=== PATIENT | male | born 1930 | race Caucasian/White ===

== ENCOUNTER 2018-09-12 10:21 | Inpatient (IN) | payer MEDICARE, OTHER ==
--- NOTE | 2018-09-12 10:43 | EDM.PDOC ---
ED HPI GENERAL MEDICAL PROBLEM - General Chief Complaint: Fever Stated Complaint: COLD LIKE SYMPTOMS Time Seen by Provider: 09/12/18 10:32 Source of Information: Reports: Patient, Family, RN Notes Reviewed History Limitations: Reports: No Limitations - History of Present Illness INITIAL COMMENTS - FREE TEXT/NARRATIVE: Sunday onset gradual worsening with temp at home 37.5 & 38.1. mild worsening of rattles in chest, but not truly productive cough. Had considered increasing his O2 up to 3 L, but couldn't see the meter as it is low to the floor on his concentrator. Is up to date influenza as well as pneumonia. No recent exposures noted. Denies any chest pain or cardiac type symptoms. Edema is chronic stable with no decrease in urine function. 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 - Related Data Allergies Allergy/AdvReac Type Severity Reaction Status Date / Time No Known Drug Allergies Allergy Other Verified 04/28/18 12:02 Home Meds: Home Meds Acetaminophen [Extra Strength Non-Aspirin] 500 mg PO Q6H PRN 04/25/18 [History] Aspirin [Adult Low Dose Aspirin EC] 162 mg PO DAILY 04/25/18 [History] Beta-Carotene(A) w/C & E/Min [Prosight] 1 tab PO DAILY 04/25/18 [History] Enalapril Maleate [Vasotec] 10 mg PO TID 04/25/18 [History] Furosemide [Lasix] 20 mg PO DAILY 04/25/18 [History] Metoprolol Tartrate [Lopressor] 25 mg PO Q12HR 04/25/18 [History] Pioglitazone [Actos] 30 mg PO DAILY@1200 04/25/18 [History] Rosuvastatin [Crestor] 5 mg PO BEDTIME 04/25/18 [History] glipiZIDE [Glipizide ER] 5 mg PO BEDTIME 04/25/18 [History] glipiZIDE [Glipizide ER] 10 mg PO DAILY@1200 04/25/18 [History] metFORMIN [Glucophage] 1,000 mg PO BID 04/25/18 [History] Past Medical History HEENT History: Reports: Cataract, Hard of Hearing, Impaired Vision, Macular Degeneration Cardiovascular History: Reports: High Cholesterol, Hypertension, SOB on Exertion Respiratory History: Reports: None, SOB 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 Dermatologic History: Reports: None - Infectious Disease History Infectious Disease History: Reports: Chicken Pox - Past Surgical History HEENT Surgical History: Reports: Cataract Surgery, Tonsillectomy Cardiovascular Surgical History: Reports: None Respiratory Surgical History: Reports: None GI Surgical History: Reports: None Male Surgical History: Reports: Cystectomy, Other (See Below) Other Male Surgeries/Procedures: bladder lesion removed Endocrine Surgical History: Reports: None Neurological Surgical History: Reports: None Musculoskeletal Surgical History: Reports: None Dermatological Surgical History: Reports: None Social & Family History - Family History Family Medical History: Noncontributory HEENT: Reports: None Cardiac: Reports: None, Other (See Below) (Cistern unknown type of heart disease and hypertension) Respiratory: Reports: None GI: Reports: None : Reports: None OBGYN: Reports: None Musculoskeletal: Reports: None Neurological: Reports: None Psychiatric: Reports: None Endocrine/Metabolic: Reports: Diabetes, type II (Father diabetes) Hematologic: Reports: None Immunologic: Reports: None Dermatologic: Reports: None Oncologic: Reports: None - Tobacco Use Smoking Status *Q: Former Smoker Used Tobacco, but Quit: Yes Month/Year Tobacco Last Used: 1974 - Caffeine Use Caffeine Use: Reports: Coffee, Soda ED ROS GENERAL - Review of Systems Review Of Systems: See Below Constitutional: Reports: Fever, Chills, Malaise HEENT: Reports: No Symptoms, Glasses, Hearing Loss Respiratory: Reports: Shortness of Breath, Cough, Sputum Cardiovascular: Reports: No Symptoms, Dyspnea on Exertion. Denies: Chest Pain, Orthopnea Endocrine: Reports: No Symptoms GI/Abdominal: Reports: Constipation. Denies: Abdominal Pain : Reports: Frequency (diuretic) Musculoskeletal: Reports: No Symptoms Skin: Reports: No Symptoms Neurological: Reports: No Symptoms Psychiatric: Reports: No Symptoms Hematologic/Lymphatic: Reports: No Symptoms Immunologic: Reports: No Symptoms ED EXAM, GENERAL - Physical Exam Exam: See Below Exam Limited By: No Limitations General Appearance: Alert, WD/WN, No Apparent Distress Ears: Normal External Exam, Normal Canal (mild cerumen), Hearing Loss Nose: Normal Inspection, Normal Mucosa, No Blood Throat/Mouth: Normal Inspection, Normal Lips, Normal Teeth, Normal Gums, Normal Oropharynx, Normal Voice, No Airway Compromise Head: Atraumatic, Normocephalic Neck: Other (Limited due to stature) Respiratory/Chest: Chest Non-Tender, Decreased Breath Sounds, Crackles, Rhonchi Cardiovascular: Normal Peripheral Pulses, Regular Rate, Rhythm, No Gallop, No Rub. No: No Edema (edema +2) GI/Abdominal: Normal Bowel Sounds, Distended (rotound no pain.) (Male) Exam: Deferred Rectal (Males) Exam: Deferred Back Exam: Normal Inspection. No: CVA Tenderness (L), CVA Tenderness (R), Vertebral Tenderness Extremities: Normal Range of Motion. No: No Pedal Edema Neurological: Alert, Oriented, CN II-XII Intact, Normal Cognition Psychiatric: Normal Affect, Normal Mood Skin Exam: Dry, Intact, Normal Color, No Rash Course - Vital Signs Last Recorded V/S: Last Vital Signs Temp 36.7 C 09/12/18 10:39 Pulse 95 09/12/18 10:39 Resp 20 09/12/18 10:39 BP 162/95 H 09/12/18 10:39 Pulse Ox 92 L 09/12/18 10:43 - Orders/Labs/Meds Orders: Active Orders 24 hr Category Date Time Status RT Aerosol Therapy [RC] ASDIRECTED Care 09/12/18 11:21 Ordered Chest 2V [CR] Stat Exams 09/12/18 10:50 Ordered B-TYPE NATRIURETIC PEPTIDE,BNP [CHEM] Stat Lab 09/12/18 10:51 Ordered CBC WITH AUTO DIFF [HEME] Routine Lab 09/12/18 10:51 Ordered COMPREHENSIVE METABOLIC PN,CMP [CHEM] Stat Lab 09/12/18 10:51 Ordered CULTURE BLOOD [BC] Stat Lab 09/12/18 10:52 Ordered CULTURE BLOOD [BC] Stat Lab 09/12/18 11:24 Ordered LACTIC ACID [CHEM] Stat Lab 09/12/18 10:52 Ordered Meds: Medications Discontinued Medications Generic Name Dose Route Start Last Admin Trade Name Kaz PRN Reason Stop Dose Admin Albuterol/Ipratropium 3 ml 09/12/18 11:20 Duoneb 3.0-0.5 Mg/3 Ml NEB 09/12/18 11:21 ONETIME ONE - Radiology Interpretation Free Text/Narrative:: Comparison with 10 May 2018 shows cardiomegaly chronic/stable. Limited inspiration. Increased marking of lobular separation Rt lower margin seems more dense with cardiac margin. Noted with increased consolidate of retro cardiac space on lateral view. - Re-Assessments/Exams Free Text/Narrative Re-Assessment/Exam: 09/12/18 12:13 nebulizer "Loosened" but minimal output for sputum culture. Slow to obtain collection. May feel slightly better after neb Free Text/Narrative Re-Assessment/Exam: 09/12/18 12:18 Breath sounds diminished bases with slight improvement of congestion rattle, mild rhonchi noted. Free Text/Narrative Re-Assessment/Exam: 09/12/18 12:20 Discussed with Jorge King for admission to inpatient status for likely pneumonia, congestion with increased shortness of breath on activity, despite home O2 therapy. Departure - Departure Time of Disposition: 12:22 Disposition: Admitted As Inpatient 66 Condition: Fair Clinical Impression: Pneumonia, Cough, History of fever, Edema, Diabetes, Weakness generalized - Discharge Information *PRESCRIPTION DRUG MONITORING PROGRAM REVIEWED*: Not Applicable *COPY OF PRESCRIPTION DRUG MONITORING REPORT IN PATIENT NEGRITO: Not Applicable Additional Instructions: Discussed with [place] Provider Jorge King for admission. - Problem List & Annotations (1) Cough SNOMED Code(s): 90496446 Code(s): R05 - COUGH Status: Acute Priority: Medium Current Visit: Yes (2) History of fever SNOMED Code(s): 248837482 Code(s): Z87.898 - PERSONAL HISTORY OF OTHER SPECIFIED CONDITIONS Status: Acute Priority: High Current Visit: Yes (3) Edema SNOMED Code(s): 292969080, 593483047 Code(s): R60.9 - EDEMA, UNSPECIFIED Status: Chronic Priority: Medium Current Visit: Yes Qualifiers: Edema type: localized Qualified Code(s): R60.0 - Localized edema (4) Diabetes SNOMED Code(s): 36962741 Code(s): E11.9 - TYPE 2 DIABETES MELLITUS WITHOUT COMPLICATIONS Status: Acute Priority: High Current Visit: Yes Qualifiers: Diabetes mellitus type: type 2 (5) Macular degeneration SNOMED Code(s): 782538006 Code(s): H35.30 - UNSPECIFIED MACULAR DEGENERATION Status: Chronic Priority: Medium Current Visit: Yes (6) Hard of hearing SNOMED Code(s): 27264804 Code(s): H91.90 - UNSPECIFIED HEARING LOSS, UNSPECIFIED EAR Status: Chronic Priority: Medium Current Visit: Yes Qualifiers: Laterality: bilateral (7) Shortness of breath SNOMED Code(s): 413684224 Code(s): R06.02 - SHORTNESS OF BREATH Status: Acute Priority: High Current Visit: Yes - Problem List Review Problem List Initiated/Reviewed/Updated: Yes - My Orders Last 24 Hours: My Active Orders 09/12/18 10:50 Chest 2V [CR] Stat 09/12/18 10:51 B-TYPE NATRIURETIC PEPTIDE,BNP [CHEM] Stat CBC WITH AUTO DIFF [HEME] Routine COMPREHENSIVE METABOLIC PN,CMP [CHEM] Stat 09/12/18 10:52 CULTURE BLOOD [BC] Stat LACTIC ACID [CHEM] Stat 09/12/18 11:21 RT Aerosol Therapy [RC] ASDIRECTED 09/12/18 11:24 CULTURE BLOOD [BC] Stat - Assessment/Plan Last 24 Hours: My Active Orders 09/12/18 10:50 Chest 2V [CR] Stat 09/12/18 10:51 B-TYPE NATRIURETIC PEPTIDE,BNP [CHEM] Stat CBC WITH AUTO DIFF [HEME] Routine COMPREHENSIVE METABOLIC PN,CMP [CHEM] Stat 09/12/18 10:52 CULTURE BLOOD [BC] Stat LACTIC ACID [CHEM] Stat 09/12/18 11:21 RT Aerosol Therapy [RC] ASDIRECTED 09/12/18 11:24 CULTURE BLOOD [BC] Stat Plan: Admission to hospital.
[2018-09-12] MEDS ORDERED: Albuterol/Ipratropium 3.0-0.5 MG/3 ML Neb Soln NEB ONE ×2 (11:01→11:20)
--- NOTE | 2018-09-12 11:30 | CR ---
[id number] RAD/RAD Chest PA And Lateral EXAM: RAD Chest PA And Lateral INDICATION: COUGH, SHORTNESS OF BREATH, FEVER. COMPARISON: May 10, 2018. DISCUSSION: Stable enlargement of the cardiac mediastinal silhouette with mild central vascular congestion. Changes of COPD with bibasal scarring, similar to the prior examination. IMPRESSION: No acute findings or significant change from the prior examination Lowell Jackson MD 09/12/18 1128 Thank you for allowing us to participate in the care of your patient.
[2018-09-12 11:52] LABS: ANION GAP 10.3 mmol/L (5-15); CHLORIDE,CL 104 mmol/L (98-115); SODIUM,NA 144 mmol/L (136-145)
[2018-09-12] MEDS ORDERED: cefTRIAXone 1 GM Vial ONE (12:12)
[2018-09-12] MEDS ORDERED: cefTRIAXone 1 GM Vial IVPUSH SCH ×2 (12:15→12:35)
[2018-09-12] MEDS ORDERED: Azithromycin 500 MG in Sodium Chloride 0.9% 250 ML IV SCH (13:00)
[2018-09-12] MEDS ORDERED: Sodium Chloride 0.9% 250 ML IV SCH (14:00)
[2018-09-12] MEDS ORDERED: Acetaminophen 500 MG Tab PO PRN (17:08)
[2018-09-12] MEDS: Rosuvastatin 5 MG Tab PO SCH (20:33)
[2018-09-12] MEDS: Metoprolol Tartrate 25 MG Tab PO SCH (20:34)
[2018-09-12] MEDS: Enalapril 5 MG Tab PO SCH (20:39)
[2018-09-13 09:37] LABS: ANION GAP 6.3 mmol/L (5-15); CHLORIDE,CL 100 mmol/L (98-115); SODIUM,NA 137 mmol/L (136-145)
[2018-09-13] MEDS: Aspirin 81 MG Tab.EC PO SCH (09:43)
[2018-09-13] MEDS: Enalapril 5 MG Tab PO SCH ×3 (09:44→21:15)
[2018-09-13] MEDS: Metoprolol Tartrate 25 MG Tab PO SCH ×2 (09:44→21:15)
--- NOTE | 2018-09-13 11:25 | PCM.HP ---
H&P History of Present Illness - General Date of Service: 09/13/18 Admit Problem/Dx: Admission Diagnosis/Problem Admission Diagnosis/Problem Shortness of breath Source of Information: Patient, Old Records History Limitations: Reports: No Limitations - History of Present Illness Initial Comments - Free Text/Narative: This is an 88 year old male who presented to the ED yesterday with concerns of shortness of breath and worsening cough. The symptoms started on 09/10/18 and have been progressively worsening. He reports that he felt feverish at home and has had a harsh productive cough. He has COPD and wears oxygen at home at 2 liters and considered increasing this to 3 liters, but never did. Denies sinus congestion or ear pain. Notes a mild sore throat. He had work up done in the ED and was subsequently admitted for further monitoring and treatment of his condition. He lives at home alone. PMH HTN, HLD, T2DM, Obesity. - Related Data Allergies/Adverse Reactions: Allergies Allergy/AdvReac Type Severity Reaction Status Date / Time No Known Drug Allergies Allergy Other Verified 09/12/18 14:49 Home Medications: Home Meds Acetaminophen [Extra Strength Non-Aspirin] 1,000 mg PO Q6H PRN 04/25/18 [History ] Aspirin [Adult Low Dose Aspirin EC] 162 mg PO DAILY 04/25/18 [History] Beta-Carotene(A) w/C & E/Min [Prosight] 1 tab PO DAILY 04/25/18 [History] Enalapril Maleate [Vasotec] 10 mg PO TID 04/25/18 [History] Furosemide [Lasix] 20 mg PO DAILY 04/25/18 [History] Metoprolol Tartrate [Lopressor] 25 mg PO Q12HR 04/25/18 [History] Pioglitazone [Actos] 30 mg PO DAILY@1200 04/25/18 [History] Rosuvastatin [Crestor] 5 mg PO BEDTIME 04/25/18 [History] glipiZIDE [Glipizide ER] 5 mg PO BEDTIME 04/25/18 [History] glipiZIDE [Glipizide ER] 10 mg PO DAILY@1200 04/25/18 [History] metFORMIN [Glucophage] 1,000 mg PO BID 04/25/18 [History] Past Medical History HEENT History: Reports: Cataract, Hard of Hearing, Impaired Vision, Macular Degeneration Cardiovascular History: Reports: High Cholesterol, Hypertension, SOB on Exertion Respiratory History: Reports: None, SOB Other Respiratory History: Home oxygen at 2 liters continuous. 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 Dermatologic History: Reports: None - Infectious Disease History Infectious Disease History: Reports: Chicken Pox - Past Surgical History Head Surgeries/Procedures: Reports: None HEENT Surgical History: Reports: Cataract Surgery, Tonsillectomy Cardiovascular Surgical History: Reports: None Respiratory Surgical History: Reports: None GI Surgical History: Reports: None Male Surgical History: Reports: Cystectomy, Other (See Below) Other Male Surgeries/Procedures: bladder lesion removed Endocrine Surgical History: Reports: None Neurological Surgical History: Reports: None Musculoskeletal Surgical History: Reports: None Oncologic Surgical History: Reports: None Dermatological Surgical History: Reports: None Social & Family History - Family History HEENT: Reports: None Cardiac: Reports: None, Other (See Below) Respiratory: Reports: None Other Respiratory Family Hisory: sister from pneumonia GI: Reports: None : Reports: None OBGYN: Reports: None Musculoskeletal: Reports: None Neurological: Reports: None Psychiatric: Reports: None Endocrine/Metabolic: Reports: Diabetes, type II Hematologic: Reports: None Immunologic: Reports: None Dermatologic: Reports: None Oncologic: Reports: None - Tobacco Use Smoking Status *Q: Former Smoker Years of Tobacco use: 25 Packs/Tins Daily: 1 Used Tobacco, but Quit: Yes Month/Year Tobacco Last Used: 1974 Second Hand Smoke Exposure: No - Caffeine Use Caffeine Use: Reports: Coffee, Soda - Recreational Drug Use Recreational Drug Use: No H&P Review of Systems - Review of Systems: Review Of Systems: See Below General: Reports: Fever, Chills, Malaise, Weakness, Fatigue, Decreased Appetite HEENT: Reports: Sore Throat. Denies: Ear Pain, Headaches, Sinus Congestion Pulmonary: Reports: Shortness of Breath, Wheezing, Cough, Sputum Cardiovascular: Reports: Dyspnea on Exertion, Edema. Denies: Chest Pain Gastrointestinal: Reports: Decreased Appetite. Denies: Abdominal Pain, Constipation, Diarrhea, Nausea, Vomiting Genitourinary: Reports: No Symptoms Psychiatric: Reports: No Symptoms Neurological: Denies: Dizziness, Headache Exam - Exam Exam: See Below - Vital Signs Vital Signs: Last Vital Signs Temp 97.4 F 09/13/18 07:00 Pulse 92 09/13/18 09:44 Resp 12 09/13/18 07:00 BP 149/80 H 09/13/18 09:44 Pulse Ox 95 09/13/18 08:11 Weight: 248 lb - Exam Quality Assessment: Supplemental Oxygen (2 liters per nasal cannula-95%), DVT Prophylaxis (score of 5-start lovenox 40 mg daily) General: Alert, Oriented, Cooperative, Other (No distress) HEENT: Conjunctiva Clear, Mucosa Moist & [place], Posterior Pharynx Clear, TMs Clear, Glasses. No: Hearing Intact ([place]) Neck: Supple, Trachea Midline Lungs: Normal Respiratory Effort, Decreased Breath Sounds (throughout lung foy), Crackles (RLL) Cardiovascular: Regular Rate, Regular Rhythm, Normal S1, Normal S2 GI/Abdominal Exam: Normal Bowel Sounds, Soft, Non-Tender, No Distention (Large, round) Extremities: Other (trace-1+ edema to BLE) Skin: Warm, Dry Neurological: Normal Speech Neuro Extensive - Mental Status: Alert, Oriented x3, Normal Mood/Affect, Normal Cognition, Memory Intact Psychiatric: Alert, Normal Affect, Normal Mood - Patient Data Lab Results Last 24 hrs: Laboratory Results - last 24 hr 09/12/18 09/12/18 09/12/18 Range/Units 11:20 11:20 11:20 WBC 3.34 L (5.00-10.00) 10^3/uL RBC 4.60 (4.50-6.00) 10^6/uL Hgb 13.8 (13.0-17.0) g/dL Hct 43.5 (40.0-52.0) % MCV 94.6 H D (82.0-92.0) fL MCH 30.0 (27.0-31.0) pg MCHC 31.7 L (32.0-36.0) g/dL RDW 13.9 (11.5-14.5) % Plt Count 114 L D (150-400) 10^3/uL MPV 8.8 (7.4-10.4) fL Immature Gran % (Auto) 0.3 (0.0-5.0) % Neut % (Auto) 68.5 (50.0-70.0) % Lymph % (Auto) 16.2 L (20.0-40.0) % [place] % (Auto) 12.9 H (2.0-8.0) % Eos % (Auto) 1.8 (1.0-3.0) % Baso % (Auto) 0.3 (0.0-1.0) % Immature Gran # (Auto) 0.01 (0.00-0.50) 10^3/uL Neut # (Auto) 2.29 L (2.50-7.00) 10^3/uL Lymph # (Auto) 0.54 L (1.00-4.00) 10^3/uL [place] # (Auto) 0.43 (0.10-0.80) 10^3/uL Eos # (Auto) 0.06 L (0.10-0.30) 10^3/uL Baso # (Auto) 0.01 (0.00-0.10) 10^3/uL Sodium 144 (136-145) mmol/L Potassium 4.0 (3.3-5.3) mmol/L Chloride 104 (98-115) mmol/L Carbon Dioxide 33.7 H (21.0-32.0) mmol/L Anion Gap 10.3 (5-15) mmol/L BUN 26 H (6-25) mg/dL Creatinine 0.77 (0.51-1.17) mg/dL Est Cr Clr Drug Dosing TNP Estimated GFR (MDRD) > 60 mL/min Glucose 160 H (75 - 99) mg/dL POC Glucose (74-106) mg/dl Lactic Acid 1.2 (0.4-2.0) mmol/L Calcium 8.3 L (8.7-10.3) mg/dL Total Bilirubin 0.5 (0.2-1.0) mg/dL AST 18 (15-37) U/L ALT 9 L (12-78) U/L Alkaline Phosphatase 67 (46-116) IU/L Troponin I (0.00-0.070) ng/mL B-Natriuretic Peptide 319 H (0-100) pg/mL Total Protein 6.6 (6.4-8.2) g/dL Albumin 3.08 (3.00-4.80) g/dL 09/13/18 09/13/18 09/13/18 Range/Units 08:08 09:05 09:05 WBC 4.26 L (5.00-10.00) 10^3/uL RBC 4.37 L (4.50-6.00) 10^6/uL Hgb 13.2 (13.0-17.0) g/dL Hct 41.0 (40.0-52.0) % MCV 93.8 H (82.0-92.0) fL MCH 30.2 (27.0-31.0) pg MCHC 32.2 (32.0-36.0) g/dL RDW 13.7 (11.5-14.5) % Plt Count 123 L (150-400) 10^3/uL MPV 9.2 (7.4-10.4) fL Immature Gran % (Auto) 0.0 (0.0-5.0) % Neut % (Auto) 73.8 H (50.0-70.0) % Lymph % (Auto) 14.3 L (20.0-40.0) % [place] % (Auto) 9.6 H (2.0-8.0) % Eos % (Auto) 2.1 (1.0-3.0) % Baso % (Auto) 0.2 (0.0-1.0) % Immature Gran # (Auto) 0.00 (0.00-0.50) 10^3/uL Neut # (Auto) 3.14 (2.50-7.00) 10^3/uL Lymph # (Auto) 0.61 L (1.00-4.00) 10^3/uL [place]kins # (Auto) 0.41 (0.10-0.80) 10^3/uL Eos # (Auto) 0.09 L (0.10-0.30) 10^3/uL Baso # (Auto) 0.01 (0.00-0.10) 10^3/uL Sodium 137 (136-145) mmol/L Potassium 3.7 (3.3-5.3) mmol/L Chloride 100 (98-115) mmol/L Carbon Dioxide 34.4 H (21.0-32.0) mmol/L Anion Gap 6.3 (5-15) mmol/L BUN 23 (6-25) mg/dL Creatinine 0.68 (0.51-1.17) mg/dL Est Cr Clr Drug Dosing 70.20 Estimated GFR (MDRD) > 60 mL/min Glucose 184 H (75 - 99) mg/dL POC Glucose 104 (74-106) mg/dl Lactic Acid (0.4-2.0) mmol/L Calcium 8.2 L (8.7-10.3) mg/dL Total Bilirubin (0.2-1.0) mg/dL AST (15-37) U/L ALT (12-78) U/L Alkaline Phosphatase (46-116) IU/L Troponin I (0.00-0.070) ng/mL B-Natriuretic Peptide (0-100) pg/mL Total Protein (6.4-8.2) g/dL Albumin (3.00-4.80) g/dL 09/13/18 Range/Units 09:05 WBC (5.00-10.00) 10^3/uL RBC (4.50-6.00) 10^6/uL Hgb (13.0-17.0) g/dL Hct (40.0-52.0) % MCV (82.0-92.0) fL MCH (27.0-31.0) pg MCHC (32.0-36.0) g/dL RDW (11.5-14.5) % Plt Count (150-400) 10^3/uL MPV (7.4-10.4) fL Immature Gran % (Auto) (0.0-5.0) % Neut % (Auto) (50.0-70.0) % Lymph % (Auto) (20.0-40.0) % [place] % (Auto) (2.0-8.0) % Eos % (Auto) (1.0-3.0) % Baso % (Auto) (0.0-1.0) % Immature Gran # (Auto) (0.00-0.50) 10^3/uL Neut # (Auto) (2.50-7.00) 10^3/uL Lymph # (Auto) (1.00-4.00) 10^3/uL [place] # (Auto) (0.10-0.80) 10^3/uL Eos # (Auto) (0.10-0.30) 10^3/uL Baso # (Auto) (0.00-0.10) 10^3/uL Sodium (136-145) mmol/L Potassium (3.3-5.3) mmol/L Chloride (98-115) mmol/L Carbon Dioxide (21.0-32.0) mmol/L Anion Gap (5-15) mmol/L BUN (6-25) mg/dL Creatinine (0.51-1.17) mg/dL Est Cr Clr Drug Dosing Estimated GFR (MDRD) mL/min Glucose (75 - 99) mg/dL POC Glucose (74-106) mg/dl Lactic Acid (0.4-2.0) mmol/L Calcium (8.7-10.3) mg/dL Total Bilirubin (0.2-1.0) mg/dL AST (15-37) U/L ALT (12-78) U/L Alkaline Phosphatase (46-116) IU/L Troponin I < 0.04 (0.00-0.070) ng/mL B-Natriuretic Peptide (0-100) pg/mL Total Protein (6.4-8.2) g/dL Albumin (3.00-4.80) g/dL Result Diagrams: 09/13/18 09:05 09/13/18 09:05 Problem List Initiated/Reviewed/Updated: Yes Orders Last 24hrs: Active Orders 24 hr Category Date Time Status Patient Status [ADT] Routine ADT 09/12/18 12:37 Ordered Accu Check [Blood Glucose Check, Bedside] [RC] TIDAC Care 09/13/18 11:18 Ordered Blood Glucose Check, Bedside [RC] 0700 Care 09/13/18 00:00 Active Oxygen Therapy [RC] ASDIRECTED Care 09/13/18 08:09 Active RT Aerosol Therapy [RC] .PRN Care 09/13/18 10:40 Active RT Incentive Spirometry [RC] Q2HWA Care 09/13/18 08:10 Active Vital Signs [RC] 0300,0700,1100,1500,1900,2300 Care 09/12/18 23:26 Active [employer] Diet [DIET] Diet 09/13/18 Breakfast Active BMP [BASIC METABOLIC PANEL,BMP] [CHEM] AM Lab 09/14/18 05:11 Ordered CBC WITH AUTO DIFF [HEME] AM Lab 09/14/18 05:11 Ordered CULTURE BLOOD [BC] Stat Lab 09/12/18 11:20 Received CULTURE BLOOD [BC] Stat Lab 09/12/18 11:50 Received INFLUENZA A+B AG SCREEN [RM] Urgent Lab 09/13/18 10:41 Ordered RESPIRATORY CULT [MREF] Stat Lab 09/12/18 12:15 Received Acetaminophen [Tylenol Extra Strength] Med 09/12/18 17:08 Active 1,000 mg PO Q6H PRN Albuterol/Ipratropium [DuoNeb 3.0-0.5 MG/3 ML] Med 09/13/18 11:00 Active 3 ml NEB Q6HRRT Aspirin [Halfprin] Med 09/13/18 09:00 Active 162 mg PO DAILY Enalapril [Vasotec] Med 09/12/18 21:00 Active 10 mg PO TID Metoprolol Tartrate [Lopressor] Med 09/12/18 21:00 Active 25 mg PO BID Rosuvastatin [Crestor] Med 09/12/18 21:00 Active 5 mg PO BEDTIME Sodium Chloride 0.9% [Normal Saline] 250 ml Med 09/12/18 14:00 Active IV ASDIRECTED metFORMIN [Glucophage] Med 09/13/18 21:00 Ordered 1,000 mg PO BID Resuscitation Status Routine Resus Stat 09/12/18 23:26 Ordered Medication Orders Acetaminophen (Tylenol Extra Strength) 1,000 mg PO Q6H PRN PRN Reason: pain, moderate Albuterol/Ipratropium (Duoneb 3.0-0.5 Mg/3 Ml) 3 ml NEB Q6HRRT LISA Aspirin (Halfprin) 162 mg PO DAILY LISA Last Admin: 09/13/18 09:43 Dose: 162 mg Enalapril Maleate (Vasotec) 10 mg PO TID LISA Last Admin: 09/13/18 09:44 Dose: 10 mg Admin: 09/12/18 20:39 Dose: 10 mg Sodium Chloride (Normal Saline) 250 mls @ 100 mls/hr IV ASDIRECTED [facility] Last Admin: 09/12/18 14:05 Dose: 100 mls/hr Metformin HCl (Glucophage) 1,000 mg PO BID [facility] Metoprolol Tartrate (Lopressor) 25 mg PO BID [facility] Last Admin: 09/13/18 09:44 Dose: 25 mg Admin: 09/12/18 20:34 Dose: 25 mg Rosuvastatin Calcium (Crestor) 5 mg PO BEDTIME [facility] Last Admin: 09/12/18 20:33 Dose: 5 mg Assessment/Plan Comment:: HPI: This is an 88 year old male who presented to the ED yesterday with concerns of shortness of breath and worsening cough. The symptoms started on 09/10 and have been progressively worsening. He reports that he felt feverish at home and has had a harsh productive cough. He has COPD and wears oxygen at home at 2 liters and considered increasing this to 3 liters, but never did. Denies sinus congestion or ear pain. Notes a mild sore throat. He had work up done in the ED and was subsequently admitted for further monitoring and treatment of his condition. He lives at home alone. PMH HTN, HLD, T2DM, Obesity. Pertinent ED workup: WBC 3.34 with no neutrophilia Hgb 13.8 BNP 319 Lactic acid 1.2 CXR-no acute processes Blood cultures x 2 pending Sputum culture pending One time doses of rocephin and azithromycin IV given Further work-up upon arrival to the floor: Medication reconciliation Troponin and influenza added Accucheckjune Ruiz Primary assessment/plan: Dyspnea, question early viral pneumonia versus COPD exacerbation versus CHF exacerbation versus influenza. WBC 4.26 with mild neutrophilia. Hgb 13.2. Troponin <0.04. Hold off on antibiotics at this time given low WBC. No signs of overt fluid overload on exam today. CXR negative. Will add DuoNebs. No wheezing so will hold off on steroids. Rule out influenza. Influenza swab pending. CHF exacerbation diastolic, mild. BNP 319. ECHO (2017) showed EF 60%, grade 2 diastolic dysfunction, normal systolic function, mild LVH. Will give one time IV lasix 20 mg dose today. Daily weights. Accurate I & O. Secondary assessment/plan: Dependence on supplemental oxygen. 2 liters is baseline. HTN. Continue enalapril and lopressor. Mixed hyperlipidemia. Continue crestor. LDL 64 (01/2018). T2DM. Accuchecks TID. Restart metformin. Holding actos and glipizide. Last A1c 6.5 (2017). Glucose 104 this AM. Obesity. Osteoarthritis. Continue tylenol PRN. Thoracic degenerative disc disease. Macular degeneration. [place]. DVT prophylaxis. Score 5. Lovenox 40 mg daily started. Overall plan: Continue work-up to find true source of dyspnea. Will treat based on results. May be able to be discharged tomorrow since he is back to his baseline respiratory status. Repeat labs in AM.
[2018-09-13] MEDS ORDERED: Furosemide 40 MG/4 ML VIAL IVPUSH ONE (11:36)
[2018-09-13] MEDS: Enoxaparin 40 MG/0.4 ML Syringe SUBCUT SCH (12:27)
[2018-09-13] MEDS: Albuterol/Ipratropium 3.0-0.5 MG/3 ML Neb Soln NEB SCH ×3 (13:24→22:48)
[2018-09-13] MEDS: metFORMIN 500 MG Tab PO SCH (21:14)
[2018-09-13] MEDS: Rosuvastatin 5 MG Tab PO SCH (21:15)
[2018-09-14] MEDS: Albuterol/Ipratropium 3.0-0.5 MG/3 ML Neb Soln NEB SCH ×3 (05:05→16:38)
[2018-09-14 07:56] LABS: ANION GAP 14.4 mmol/L (5-15); CHLORIDE,CL 98 mmol/L (98-115); SODIUM,NA 142 mmol/L (136-145)
[2018-09-14] MEDS: Aspirin 81 MG Tab.EC PO SCH (09:45)
[2018-09-14] MEDS: Metoprolol Tartrate 25 MG Tab PO SCH (09:45)
[2018-09-14] MEDS: metFORMIN 500 MG Tab PO SCH (09:46)
[2018-09-14] MEDS: Enalapril 5 MG Tab PO SCH ×2 (09:46→14:15)
[2018-09-14] MEDS: Enoxaparin 40 MG/0.4 ML Syringe SUBCUT SCH (12:23)
[2018-09-14] MEDS ORDERED: Albuterol/Ipratropium 3.0-0.5 MG/3 ML Neb Soln ONE (16:32)
--- NOTE | 2018-09-16 09:46 | DISCH ---
DISCHARGE DIAGNOSIS: Chronic obstructive pulmonary disease with mild central vascular congestion. BRIEF HISTORY: An 88-year-old male patient who was admitted through the ED due to concerns of shortness of breath and cough. His symptoms actually began on 09/10/2018 and progressively worsened. He had been at home. He reported being feverish with a harsh productive cough. He does utilize home oxygen at 2 L per nasal cannula. He did not have any sinus congestion, ear ache, or ear congestion. He did complain of a mild sore throat. He was admitted for further monitoring and treatment. He does live at home alone in [place], [place]. He reports that he is planning to move to [place] in the near future. HOSPITAL SUMMARY: This patient was initially seen through the ED. He was given one IV dose of azithromycin and given Rocephin in addition. He received lab work. His white count initially was 3.34 with a followup of 4.26, therefore, the antibiotic was discontinued. He did receive nebulizing treatments and Lasix therapy. Blood cultures were obtained after one day and those are negative for growth. Sputum culture is pending. An influenza screen was obtained and is negative. He has had no complications throughout the course of his hospitalization. MEDICATIONS: His medications on discharge will be his home medications which will include: 1. Prosight daily. 2. Tylenol 1000 mg every 6 hours as needed. 3. Lopressor 25 q.12 hours. 4. Vasotec 10 mg t.i.d. 5. Aspirin low-dose 162 mg daily. 6. Metformin 1000 mg b.i.d. 7. Glipizide 5 mg at bedtime and 10 mg at noon. 8. Lasix 20 daily. 9. Crestor 5 mg daily. He previously was on Actos, however, his last A1c was 6.5, therefore that is going to be held until his followup is obtained next week. PHYSICAL EXAMINATION: VITAL SIGNS: Stable. HEENT: Negative. RESPIRATORY: Lung sounds are clear to auscultation in the upper bases. He does have some fine crackles in the lower bases. CARDIOVASCULAR: Heart rate and rhythm is regular. S1, S2. ABDOMEN: Rounded, large. Bowel sounds are present. EXTREMITIES: Noted a trace of lower extremity edema. MENTAL STATUS: He is alert and he is oriented. His mood and affect are normal. IMPRESSION AND PLAN: His primary assessment is chronic obstructive pulmonary disease with mild central vascular congestion. Initially, it was felt there could possibly be pneumonia; however, with his white count being normal, that was ruled out. His chest x-ray was essentially negative. Influenza was negative. Congestive heart failure exacerbation, he did have a BNP of 319. He had an echo completed in 2018 with an ejection fraction of 60%. He had a grade 2 diastolic dysfunction with a normal systolic dysfunction. His secondary assessment and plan, oxygen supplementation dependence, 2 L per nasal cannula. He has hypertension. He will continue with his Lopressor and enalapril. Hypercholesterolemia will be treated with his Crestor. He does have type 2 diabetes. He is to complete home Accu-Cheks on a b.i.d. to t.i.d. basis. He will continue his metformin and his glipizide at home. Actos will be held. His last A1c was 6.5. He is to monitor his home blood sugars and follow up next week with his primary care provider for reevaluation of his diabetes, obesity, osteoarthritis. He will continue with his Tylenol as needed. He does have macular degeneration. The patient did receive a discharge packet with diabetic patient education material. /[id number]
== END 2018-09-14 17:00 | disposition home or self-care (01) | DRG 190 ==
LOC: KA.ED 10:21 → KA.MS 12:37
PROVIDERS: ADMIT Nurse Practitioner; ATTEND Family Medicine
DX: J44.9 Chronic obstructive pulmonary disease, unspecified (principal); I50.33 Acute on chronic diastolic (congestive) heart failure; I11.0 Hypertensive heart disease with heart failure; E78.00 Pure hypercholesterolemia, unspecified; E11.9 Type 2 diabetes mellitus without complications; E66.9 Obesity, unspecified; M19.91 Primary osteoarthritis, unspecified site; H35.30 Unspecified macular degeneration; H91.90 Unspecified hearing loss, unspecified ear; H54.7 Unspecified visual loss; K59.09 Other constipation; E78.2 Mixed hyperlipidemia; M51.34 Other intervertebral disc degeneration, thoracic region; Z79.82 Long term (current) use of aspirin; Z79.84 Long term (current) use of oral hypoglycemic drugs; Z98.49 Cataract extraction status, unspecified eye; Z99.81 Dependence on supplemental oxygen; Z85.89 Personal history of malignant neoplasm of other organs and systems; Z87.891 Personal history of nicotine dependence
CPT/HCPCS: 36415; 71046; 80048; 80053; 82962; 83605; 83880; 84484; 85025; 87040; 87070; 87205; 87804; 94640; 99284; 99285-25; A9270-GY; J0456; J0696; J1650; J1940; J7050; J7620-GY

== ENCOUNTER 2018-11-12 13:55 | Inpatient (IN) | payer MEDICARE, OTHER ==
--- NOTE | 2018-11-12 14:22 | EDM.PDOC ---
ED HPI GENERAL MEDICAL PROBLEM - General Chief Complaint: General Stated Complaint: Weakness Time Seen by Provider: 11/12/18 14:06 Source of Information: Reports: Patient, Provider History Limitations: Reports: No Limitations - History of Present Illness INITIAL COMMENTS - FREE TEXT/NARRATIVE: Patient is a 88-year-old gentleman who presents to the emergency department with a complaint of generalized weakness. Patient states that this gradually getting worse and is having a hard time walking. Patient was brought here by his nephew. I discussed case with Karime Alexandra from [facility] who is well known to her. Patient was found to have oxygen saturation of 88% on presentation, however patient does use oxygen at home. Patient denies recent fall, syncopal episode, chest pain, headache, shortness of breath, blurry vision , nausea, vomiting, diarrhea, abdominal pain. Onset: Gradual Duration: Getting Worse Location: Reports: Generalized Severity: Mild Improves with: Reports: None Worsens with: Reports: None Associated Symptoms: Reports: Shortness of Breath, Weakness - Related Data Allergies Allergy/AdvReac Type Severity Reaction Status Date / Time No Known Drug Allergies Allergy Other Verified 11/12/18 14:12 Home Meds: Home Meds Aspirin [Adult Low Dose Aspirin EC] 162 mg PO DAILY 04/25/18 [History] Beta-Carotene(A) w/C & E/Min [Prosight] 1 tab PO DAILY 04/25/18 [History] Enalapril Maleate [Vasotec] 10 mg PO TID 04/25/18 [History] Furosemide [Lasix] 20 mg PO DAILY 04/25/18 [History] Metoprolol Tartrate [Lopressor] 25 mg PO Q12HR 04/25/18 [History] Rosuvastatin [Crestor] 5 mg PO BEDTIME 04/25/18 [History] glipiZIDE [Glipizide ER] 5 mg PO BEDTIME 04/25/18 [History] glipiZIDE [Glipizide ER] 10 mg PO DAILY@1200 04/25/18 [History] metFORMIN [Glucophage] 1,000 mg PO BID 04/25/18 [History] Acetaminophen [Tylenol Extra Strength] 1,000 mg PO Q6H PRN tablet 09/14/18 [Rx] Albuterol/Ipratropium [DuoNeb 3.0-0.5 MG/3 ML] 3 ml NEB TID 11/12/18 [History] Past Medical History HEENT History: Reports: Cataract, Hard of Hearing, Impaired Vision, Macular Degeneration Cardiovascular History: Reports: High Cholesterol, Hypertension, SOB on Exertion Respiratory History: Reports: None, SOB Other Respiratory History: Home oxygen at 2 liters continuous. 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 Dermatologic History: Reports: None - Infectious Disease History Infectious Disease History: Reports: Chicken Pox - Past Surgical History Head Surgeries/Procedures: Reports: None HEENT Surgical History: Reports: Cataract Surgery, Tonsillectomy Cardiovascular Surgical History: Reports: None Respiratory Surgical History: Reports: None GI Surgical History: Reports: None Male Surgical History: Reports: Cystectomy, Other (See Below) Other Male Surgeries/Procedures: bladder lesion removed Endocrine Surgical History: Reports: None Neurological Surgical History: Reports: None Musculoskeletal Surgical History: Reports: None Oncologic Surgical History: Reports: None Dermatological Surgical History: Reports: None Social & Family History - Family History Family Medical History: Noncontributory HEENT: Reports: None Cardiac: Reports: None, Other (See Below) Respiratory: Reports: None Other Respiratory Family Hisory: sister from pneumonia GI: Reports: None : Reports: None OBGYN: Reports: None Musculoskeletal: Reports: None Neurological: Reports: None Psychiatric: Reports: None Endocrine/Metabolic: Reports: Diabetes, type II Hematologic: Reports: None Immunologic: Reports: None Dermatologic: Reports: None Oncologic: Reports: None - Caffeine Use Caffeine Use: Reports: Coffee, Soda ED ROS GENERAL - Review of Systems Review Of Systems: ROS reveals no pertinent complaints other than HPI. Constitutional: Reports: Weakness, Fatigue HEENT: Reports: No Symptoms Respiratory: Reports: Shortness of Breath Cardiovascular: Reports: No Symptoms Endocrine: Reports: No Symptoms GI/Abdominal: Reports: No Symptoms : Reports: No Symptoms Musculoskeletal: Reports: No Symptoms Skin: Reports: No Symptoms Neurological: Reports: No Symptoms Psychiatric: Reports: No Symptoms Hematologic/Lymphatic: Reports: No Symptoms Immunologic: Reports: No Symptoms ED EXAM, GENERAL - Physical Exam Exam: See Below Exam Limited By: No Limitations General Appearance: Alert, WD/WN, No Apparent Distress Eye Exam: Bilateral Eye: Normal Inspection Nose: Normal Inspection, Normal Mucosa, No Blood Throat/Mouth: Normal Inspection, Normal Oropharynx, No Airway Compromise Head: Atraumatic, Normocephalic Neck: Normal Inspection, Supple, Non-Tender Respiratory/Chest: No Respiratory Distress, Lungs Clear, Normal Breath Sounds, No Accessory Muscle Use, Chest Non-Tender Cardiovascular: Regular Rate, Rhythm, No Murmur GI/Abdominal: Normal Bowel Sounds, Soft, Non-Tender, No Organomegaly, No Distention, No Abnormal Bruit, No Mass Back Exam: Normal Inspection. No: CVA Tenderness (L), CVA Tenderness (R) Extremities: No Pedal Edema, Other (Bilateral lower extremities with numerous excoriations and stasis color changes) Neurological: Alert, Oriented, Normal Cognition Psychiatric: Normal Affect, Normal Mood Skin Exam: Warm, Dry, Intact, No Rash EKG INTERPRETATION EKG Date: 11/12/18 Time: 14:15 Rhythm: Other (Sinus rhythm with first-degree AV block) Rate (Beats/Min): 97 [place]: Normal QRS: Normal ST-T: Normal QT: Normal Course - Vital Signs Last Recorded V/S: Last Vital Signs Temp 99.1 F 11/12/18 13:59 Pulse 100 11/12/18 14:46 Resp 24 H 11/12/18 14:46 BP 179/87 H 11/12/18 14:48 Pulse Ox 92 L 11/12/18 14:46 - Orders/Labs/Meds Orders: Active Orders 24 hr Category Date Time Status EKG Documentation Completion [RC] ASDIRECTED Care 11/12/18 14:07 Ordered UA RFX SARMAD AND CULT IF INDIC [URIN] Stat Lab 11/12/18 14:07 Ordered EKG 12 Lead [EK] Routine Ther 11/12/18 14:06 Ordered Labs: Laboratory Tests 11/12/18 11/12/18 Range/Units 14:30 14:30 WBC 7.26 (5.00-10.00) 10^3/uL RBC 4.31 L (4.50-6.00) 10^6/uL Hgb 12.9 L (13.0-17.0) g/dL Hct 39.6 L (40.0-52.0) % MCV 91.9 (82.0-92.0) fL MCH 29.9 (27.0-31.0) pg MCHC 32.6 (32.0-36.0) g/dL RDW 13.2 (11.5-14.5) % Plt Count 187 (150-400) 10^3/uL MPV 9.2 (7.4-10.4) fL Immature Gran % (Auto) 0.3 (0.0-5.0) % Neut % (Auto) 82.4 H (50.0-70.0) % Lymph % (Auto) 7.7 L (20.0-40.0) % [place] % (Auto) 7.6 (2.0-8.0) % Eos % (Auto) 1.7 (1.0-3.0) % Baso % (Auto) 0.3 (0.0-1.0) % Immature Gran # (Auto) 0.02 (0.00-0.50) 10^3/uL Neut # (Auto) 5.99 (2.50-7.00) 10^3/uL Lymph # (Auto) 0.56 L (1.00-4.00) 10^3/uL [place] # (Auto) 0.55 (0.10-0.80) 10^3/uL Eos # (Auto) 0.12 (0.10-0.30) 10^3/uL Baso # (Auto) 0.02 (0.00-0.10) 10^3/uL Sodium 144 (136-145) mmol/L Potassium 3.8 (3.3-5.3) mmol/L Chloride 104 (98-115) mmol/L Carbon Dioxide 31.3 (21.0-32.0) mmol/L Anion Gap 12.5 (5-15) mmol/L BUN 26 H (6-25) mg/dL Creatinine 0.78 (0.51-1.17) mg/dL Est Cr Clr Drug Dosing 67.59 mL/min Estimated GFR (MDRD) > 60 mL/min Glucose 185 H (75 - 99) mg/dL Calcium 7.9 L (8.7-10.3) mg/dL Total Bilirubin 0.6 (0.2-1.0) mg/dL AST 14 L (15-37) U/L ALT 14 (12-78) U/L Alkaline Phosphatase 69 (46-116) IU/L Total Protein 6.7 (6.4-8.2) g/dL Albumin 3.19 (3.00-4.80) g/dL - Radiology Interpretation Free Text/Narrative:: Chest x-ray shows no acute cardiopulmonary process - Re-Assessments/Exams Free Text/Narrative Re-Assessment/Exam: 11/12/18 15:08 Patient afebrile, vital signs stable, required 2 L nasal cannula to maintain oxygen saturation above 92%. Discussed case with Dr. Adama alonzo, patient will be inpatient admitted and followed by [facility]. Departure - Departure Time of Disposition: 15:09 Disposition: Admitted As Inpatient 66 Condition: Fair Clinical Impression: Shortness of breath, Weakness generalized, Hypoxemia - Discharge Information Referrals: Karime Alexandra PA-C [Primary Care Provider] - Forms: ED Department Discharge - My Orders Last 24 Hours: My Active Orders 11/12/18 14:06 EKG 12 Lead [EK] Routine 11/12/18 14:07 EKG Documentation Completion [RC] ASDIRECTED UA RFX SARMAD AND CULT IF INDIC [URIN] Stat - Assessment/Plan Last 24 Hours: My Active Orders 11/12/18 14:06 EKG 12 Lead [EK] Routine 11/12/18 14:07 EKG Documentation Completion [RC] ASDIRECTED UA RFX SARMAD AND CULT IF INDIC [URIN] Stat Assessment:: Generalized weakness Plan: Admit inpatient to [facility]
[2018-11-12 14:59] LABS: ANION GAP 12.5 mmol/L (5-15); CHLORIDE,CL 104 mmol/L (98-115); SODIUM,NA 144 mmol/L (136-145)
[2018-11-12] MEDS ORDERED: Acetaminophen 500 MG Tab PO PRN (18:14)
[2018-11-12] MEDS: Albuterol/Ipratropium 3.0-0.5 MG/3 ML Neb Soln NEB SCH (19:37)
[2018-11-12] MEDS: Metoprolol Tartrate 25 MG Tab PO SCH (21:17)
[2018-11-12] MEDS: Enalapril 5 MG Tab PO SCH (21:17)
[2018-11-12] MEDS: Rosuvastatin 5 MG Tab PO SCH (21:17)
[2018-11-13] MEDS: Albuterol/Ipratropium 3.0-0.5 MG/3 ML Neb Soln NEB SCH ×3 (07:09→18:33)
[2018-11-13 08:00] LABS: ANION GAP 10.5 mmol/L (5-15); CHLORIDE,CL 102 mmol/L (98-115); SODIUM,NA 142 mmol/L (136-145)
[2018-11-13] MEDS: Insulin Aspart 100 Units/ML 3 ML Pen SUBCUT SCH ×3 (08:15→17:18)
[2018-11-13] MEDS: Enalapril 5 MG Tab PO SCH ×3 (08:49→20:47)
[2018-11-13] MEDS: Aspirin 81 MG Tab.EC PO SCH (08:49)
[2018-11-13] MEDS: Metoprolol Tartrate 25 MG Tab PO SCH ×2 (08:49→20:48)
[2018-11-13] MEDS: Furosemide 20 MG Tab PO SCH (08:49)
--- NOTE | 2018-11-13 11:47 | PCM.HP ---
H&P History of Present Illness - General Date of Service: 11/13/18 Admit Problem/Dx: Admission Diagnosis/Problem Admission Diagnosis/Problem Weakness Source of Information: Patient, Old Records, RN - History of Present Illness Initial Comments - Free Text/Narative: Sheng is an 88 y/o pleasant gentleman who was admitted Into inpatient status through the ED due to significant weakness. Patient does have history of multiple falls in the past with previous admissions related to falls. most recent admission ~ 2 months ago when he had presented to the ED due to shortness of breath and worsening cough which was felt to be likely viral pneumonia with mild COPD exacerbation. - Related Data Allergies/Adverse Reactions: Allergies Allergy/AdvReac Type Severity Reaction Status Date / Time No Known Drug Allergies Allergy Other Verified 11/12/18 14:12 Home Medications: Home Meds Acetaminophen [Tylenol Extra Strength] 1,000 mg PO Q8H PRN #180 tablet 11/15/18 [Rx] Albuterol/Ipratropium [DuoNeb 3.0-0.5 MG/3 ML] 3 ml NEB TID #90 neb 11/15/18 [Rx ] Beta-Carotene(A) w/C & E/Min [Prosight] 1 tab PO DAILY #30 tablet 11/15/18 [Rx] Enalapril Maleate [Vasotec] 10 mg PO BID #60 tablet 11/15/18 [Rx] Furosemide [Lasix] 20 mg PO DAILY #30 tablet 11/15/18 [Rx] Insulin Aspart [NovoLOG] See Protocol SUBCUT TIDMEALS #3 pen 11/15/18 [Rx] Metoprolol Tartrate [Lopressor] 25 mg PO Q12HR #60 tablet 11/15/18 [Rx] Rosuvastatin [Crestor] 5 mg PO BEDTIME #30 tablet 11/15/18 [Rx] glipiZIDE [Glipizide ER] 5 mg PO BEDTIME #30 tab.er.24 11/15/18 [Rx] glipiZIDE [Glipizide ER] 10 mg PO DAILY@1200 #30 tab.er.24 11/15/18 [Rx] metFORMIN [Glucophage] 1,000 mg PO BID #60 tablet 11/15/18 [Rx] Past Medical History HEENT History: Reports: Cataract, Hard of Hearing, Impaired Vision, Macular Degeneration Cardiovascular History: Reports: High Cholesterol, Hypertension, SOB on Exertion Respiratory History: Reports: None, COPD, SOB Other Respiratory History: Home oxygen at 2 liters continuous. 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 Dermatologic History: Reports: None - Infectious Disease History Infectious Disease History: Reports: Chicken Pox - Past Surgical History Head Surgeries/Procedures: Reports: None HEENT Surgical History: Reports: Cataract Surgery, Tonsillectomy Cardiovascular Surgical History: Reports: None Respiratory Surgical History: Reports: None GI Surgical History: Reports: None Male Surgical History: Reports: Cystectomy, Other (See Below) Other Male Surgeries/Procedures: bladder lesion removed Endocrine Surgical History: Reports: None Neurological Surgical History: Reports: None Musculoskeletal Surgical History: Reports: None Oncologic Surgical History: Reports: None Dermatological Surgical History: Reports: None Social & Family History - Family History HEENT: Reports: None Cardiac: Reports: None, Other (See Below) Respiratory: Reports: None Other Respiratory Family Hisory: sister from pneumonia GI: Reports: None : Reports: None OBGYN: Reports: None Musculoskeletal: Reports: None Neurological: Reports: None Psychiatric: Reports: None Endocrine/Metabolic: Reports: Diabetes, type II Hematologic: Reports: None Immunologic: Reports: None Dermatologic: Reports: None Oncologic: Reports: None - Tobacco Use Smoking Status *Q: Former Smoker Used Tobacco, but Quit: Yes Month/Year Tobacco Last Used: 1964 - Caffeine Use Caffeine Use: Reports: Coffee, Soda - Recreational Drug Use Recreational Drug Use: No H&P Review of Systems - Review of Systems: Review Of Systems: See Below General: Reports: Weakness. Denies: Decreased Appetite, Weight Loss HEENT: Reports: No Symptoms Pulmonary: Reports: Shortness of Breath Cardiovascular: Denies: Chest Pain, Orthopnea, Edema, Blood Pressure Problem Gastrointestinal: Reports: No Symptoms Genitourinary: Reports: No Symptoms Musculoskeletal: Reports: No Symptoms Skin: Reports: Bruising. Denies: Wound Psychiatric: Denies: Confusion Neurological: Reports: Difficulty Walking. Denies: Confusion, Dizziness Hematologic/Lymphatic: Reports: Easy Bruising Immunologic: Reports: No Symptoms Exam - Exam Exam: See Below - Vital Signs Vital Signs: Last Vital Signs Temp 98.0 F 11/13/18 11:00 Pulse 71 11/13/18 11:00 Resp 16 11/13/18 11:00 BP 145/78 H 11/13/18 11:00 Pulse Ox 96 11/13/18 11:00 Weight: 246 lb 4.8 oz - Exam Quality Assessment: Supplemental Oxygen General: Alert, Oriented, Cooperative. No: Mild Distress Neck: Supple Lungs: Clear to Auscultation. No: Normal Respiratory Effort Cardiovascular: Regular Rate, Regular Rhythm. No: Irregular Rhythm GI/Abdominal Exam: Other (large abdominal habitus). No: Distended, Rigid, Rebound, Tender (Male) Exam: Deferred Rectal (Males) Exam: Deferred Back Exam: No: CVA Tenderness (L), CVA Tenderness (R) Extremities: No Pedal Edema Skin: Other (multiple scratches, healing cuts on lower extremity, bruising various stages of healing) Neurological: Cranial Nerves Intact, Reflexes Equal Bilateral Neuro Extensive - Mental Status: Alert, Oriented x3, Normal Cognition Neuro Extensive - Motor, Sensory, Reflexes: CN II-XII Intact, Normal Gait, Normal Reflexes Psychiatric: Alert, Normal Affect, Normal Mood - Patient Data Lab Results Last 24 hrs: Laboratory Results - last 24 hr 11/12/18 11/12/18 11/12/18 Range/Units 14:30 14:30 20:15 WBC 7.26 (5.00-10.00) 10^3/uL RBC 4.31 L (4.50-6.00) 10^6/uL Hgb 12.9 L (13.0-17.0) g/dL Hct 39.6 L (40.0-52.0) % MCV 91.9 (82.0-92.0) fL MCH 29.9 (27.0-31.0) pg MCHC 32.6 (32.0-36.0) g/dL RDW 13.2 (11.5-14.5) % Plt Count 187 (150-400) 10^3/uL MPV 9.2 (7.4-10.4) fL Immature Gran % (Auto) 0.3 (0.0-5.0) % Neut % (Auto) 82.4 H (50.0-70.0) % Lymph % (Auto) 7.7 L (20.0-40.0) % [place] % (Auto) 7.6 (2.0-8.0) % Eos % (Auto) 1.7 (1.0-3.0) % Baso % (Auto) 0.3 (0.0-1.0) % Immature Gran # (Auto) 0.02 (0.00-0.50) 10^3/uL Neut # (Auto) 5.99 (2.50-7.00) 10^3/uL Lymph # (Auto) 0.56 L (1.00-4.00) 10^3/uL [place] # (Auto) 0.55 (0.10-0.80) 10^3/uL Eos # (Auto) 0.12 (0.10-0.30) 10^3/uL Baso # (Auto) 0.02 (0.00-0.10) 10^3/uL Sodium 144 (136-145) mmol/L Potassium 3.8 (3.3-5.3) mmol/L Chloride 104 (98-115) mmol/L Carbon Dioxide 31.3 (21.0-32.0) mmol/L Anion Gap 12.5 (5-15) mmol/L BUN 26 H (6-25) mg/dL Creatinine 0.78 (0.51-1.17) mg/dL Est Cr Clr Drug Dosing 67.59 mL/min Estimated GFR (MDRD) > 60 mL/min Glucose 185 H (75 - 99) mg/dL POC Glucose (74-106) mg/dl Calcium 7.9 L (8.7-10.3) mg/dL Total Bilirubin 0.6 (0.2-1.0) mg/dL AST 14 L (15-37) U/L ALT 14 (12-78) U/L Alkaline Phosphatase 69 (46-116) IU/L Total Protein 6.7 (6.4-8.2) g/dL Albumin 3.19 (3.00-4.80) g/dL Specimen Type Urincc Urine Color Yellow (YELLOW) Urine Appearance Clear (CLEAR) Urine pH 7.0 (5.0-9.0) Ur Specific [place] 1.015 (1.005-1.030) Urine Protein 30 H (NEGATIVE) mg/dL Urine Glucose (UA) Negative (NEGATIVE) mg/dL Urine Ketones Negative (NEGATIVE) mg/dL Urine Occult Blood Negative (NEGATIVE) Urine Nitrite Negative (NEGATIVE) Urine Bilirubin Negative (NEGATIVE) Urine Urobilinogen 2.0 H (0.2-1.0) E.U./dL Ur Leukocyte Esterase Negative (NEGATIVE) Urine RBC 0-5 (0-5) /HPF Urine WBC 0-5 (0-5) /HPF Ur Epithelial Cells Rare /LPF Urine Bacteria Not seen (NONE TO FEW) /HPF 11/13/18 11/13/18 11/13/18 Range/Units 07:10 07:10 07:52 WBC 5.92 (5.00-10.00) 10^3/uL RBC 4.23 L (4.50-6.00) 10^6/uL Hgb 12.6 L (13.0-17.0) g/dL Hct 39.3 L (40.0-52.0) % MCV 92.9 H (82.0-92.0) fL MCH 29.8 (27.0-31.0) pg MCHC 32.1 (32.0-36.0) g/dL RDW 13.1 (11.5-14.5) % Plt Count 186 (150-400) 10^3/uL MPV 9.2 (7.4-10.4) fL Immature Gran % (Auto) 0.2 (0.0-5.0) % Neut % (Auto) 77.2 H (50.0-70.0) % Lymph % (Auto) 10.6 L (20.0-40.0) % [place] % (Auto) 8.8 H (2.0-8.0) % Eos % (Auto) 3.0 (1.0-3.0) % Baso % (Auto) 0.2 (0.0-1.0) % Immature Gran # (Auto) 0.01 (0.00-0.50) 10^3/uL Neut # (Auto) 4.57 (2.50-7.00) 10^3/uL Lymph # (Auto) 0.63 L (1.00-4.00) 10^3/uL [place] # (Auto) 0.52 (0.10-0.80) 10^3/uL Eos # (Auto) 0.18 (0.10-0.30) 10^3/uL Baso # (Auto) 0.01 (0.00-0.10) 10^3/uL Sodium 142 (136-145) mmol/L Potassium 3.9 (3.3-5.3) mmol/L Chloride 102 (98-115) mmol/L Carbon Dioxide 33.4 H (21.0-32.0) mmol/L Anion Gap 10.5 (5-15) mmol/L BUN 20 (6-25) mg/dL Creatinine 0.78 (0.51-1.17) mg/dL Est Cr Clr Drug Dosing 67.59 mL/min Estimated GFR (MDRD) > 60 mL/min Glucose 150 H (75 - 99) mg/dL POC Glucose 168 H (74-106) mg/dl Calcium 8.1 L (8.7-10.3) mg/dL Total Bilirubin (0.2-1.0) mg/dL AST (15-37) U/L ALT (12-78) U/L Alkaline Phosphatase (46-116) IU/L Total Protein (6.4-8.2) g/dL Albumin (3.00-4.80) g/dL Specimen Type Urine Color (YELLOW) Urine Appearance (CLEAR) Urine pH (5.0-9.0) Ur Specific [place] (1.005-1.030) Urine Protein (NEGATIVE) mg/dL Urine Glucose (UA) (NEGATIVE) mg/dL Urine Ketones (NEGATIVE) mg/dL Urine Occult Blood (NEGATIVE) Urine Nitrite (NEGATIVE) Urine Bilirubin (NEGATIVE) Urine Urobilinogen (0.2-1.0) E.U./dL Ur Leukocyte Esterase (NEGATIVE) Urine RBC (0-5) /HPF Urine WBC (0-5) /HPF Ur Epithelial Cells /LPF Urine Bacteria (NONE TO FEW) /HPF Result Diagrams: 11/13/18 07:10 11/13/18 07:10 Problem List Initiated/Reviewed/Updated: Yes Orders Last 24hrs: Active Orders 24 hr Category Date Time Status Patient Status [ADT] Routine ADT 11/12/18 15:10 Ordered Blood Glucose Check, Bedside [RC] TIDMEALS Care 11/12/18 18:15 Active Oxygen Therapy [RC] PRN Care 11/12/18 15:10 Active Vital Signs [RC] 0300,0700,1100,1500,1900,2300 Care 11/12/18 15:10 Active Consult to Physical Therapy [PT Evaluation and Cons 11/12/18 18:16 Active Treatment] [CONS] Routine ADA Diabetic [[place] [employer] Diet] [DIET Diet 11/13/18 Breakfast Active ] MISCELLANEOUS CULT [MREF] Routine Lab 11/12/18 16:50 Received Acetaminophen [Tylenol Extra Strength] Med 11/12/18 18:14 Active 1,000 mg PO Q6H PRN Albuterol/Ipratropium [DuoNeb 3.0-0.5 MG/3 ML] Med 11/12/18 19:00 Active 3 ml NEB TIDRT Aspirin [Halfprin] Med 11/13/18 09:00 Active 162 mg PO DAILY Enalapril [Vasotec] Med 11/12/18 21:00 Active 10 mg PO TID Furosemide [Lasix] Med 11/13/18 09:00 Active 20 mg PO DAILY Insulin Aspart [NovoLOG] Med 11/13/18 08:00 Active See Protocol SUBCUT TIDMEALS Metoprolol Tartrate [Lopressor] Med 11/12/18 21:00 Active 25 mg PO BID Rosuvastatin [Crestor] Med 11/12/18 21:00 Active 5 mg PO BEDTIME Resuscitation Status Routine Resus Stat 11/12/18 15:10 Ordered Medication Orders Acetaminophen (Tylenol Extra Strength) 1,000 mg PO Q6H PRN PRN Reason: pain, moderate Albuterol/Ipratropium (Duoneb 3.0-0.5 Mg/3 Ml) 3 ml NEB TIDRT [facility] Last Admin: 11/13/18 07:09 Dose: 3 ml Admin: 11/12/18 19:37 Dose: 3 ml Aspirin (Halfprin) 162 mg PO DAILY [facility] Last Admin: 11/13/18 08:49 Dose: 162 mg Enalapril Maleate (Vasotec) 10 mg PO TID [facility] Last Admin: 11/13/18 08:49 Dose: 10 mg Admin: 11/12/18 21:17 Dose: 10 mg Furosemide (Lasix) 20 mg PO DAILY [facility] Last Admin: 11/13/18 08:49 Dose: 20 mg Insulin Aspart (Novolog) 0 unit SUBCUT TIDMEALS [facility]; Protocol Last Admin: 11/13/18 08:15 Dose: 1 unit Metoprolol Tartrate (Lopressor) 25 mg PO BID [facility] Last Admin: 11/13/18 08:49 Dose: 25 mg Admin: 11/12/18 21:17 Dose: 25 mg Rosuvastatin Calcium (Crestor) 5 mg PO BEDTIME [facility] Last Admin: 11/12/18 21:17 Dose: 5 mg Assessment/Plan Comment:: history of present illness Sheng is an 88 y/o pleasant gentleman who was admitted Into inpatient status through the ED due to significant weakness. Patient does have history of multiple falls in the past with previous admissions related to falls. most recent admission ~ 2 months ago when he had presented to the ED due to shortness of breath and worsening cough which was felt to be likely viral pneumonia with mild COPD exacerbation. pertinent ED findings Electrolytes non concerning. VSS normal stable Primary hospital problems Weakness with frequent falls COPD with hypoxia HFpEF ECHO (2018) EF 60%, gr II diastolic dysfunction, normal systolic function , mild LVH. Obesity, co-morbid Chronic stable problems oxygen dependent HTN. Continue enalapril and lopressor Mixed hyperlipidemia. Continue crestor T2DM. Accuchecks TID. given stability patient can continue with home metformin. Osteoarthritis. Continue tylenol PRN. Thoracic DDD Macular degeneration. DVT prophylaxis. Score 5. LMWH --patient has met inpatient qualifications, due to hypoxia. Admission to long term Sunday --physical therapy consultation --Assess BNP --I/O --Daily wts Patient is a 88-year-old gentleman who presents to the emergency department with a complaint of generalized weakness. Patient states that this gradually getting worse and is having a hard time walking. Patient was brought here by his nephew. I discussed case with Karime Alexandra from [facility] who is well known to her. Patient was found to have oxygen saturation of 88% on presentation, however patient does use oxygen at home. Patient denies recent fall, syncopal episode, chest pain, headache, shortness of breath, blurry vision , nausea, vomiting, diarrhea, abdominal pain.
[2018-11-13] MEDS: Enoxaparin 40 MG/0.4 ML Syringe SUBCUT SCH (12:09)
[2018-11-13] MEDS: Rosuvastatin 5 MG Tab PO SCH (20:47)
[2018-11-13] MEDS: metFORMIN 500 MG Tab PO SCH (20:47)
[2018-11-14] MEDS: Albuterol/Ipratropium 3.0-0.5 MG/3 ML Neb Soln NEB SCH ×3 (06:08→19:14)
[2018-11-14] MEDS: Insulin Aspart 100 Units/ML 3 ML Pen SUBCUT SCH ×3 (08:20→18:38)
[2018-11-14] MEDS: Enalapril 5 MG Tab PO SCH ×3 (08:20→20:31)
[2018-11-14] MEDS: metFORMIN 500 MG Tab PO SCH ×2 (08:21→20:30)
[2018-11-14] MEDS: Furosemide 20 MG Tab PO SCH (08:21)
[2018-11-14] MEDS: Aspirin 81 MG Tab.EC PO SCH (08:21)
[2018-11-14] MEDS: Metoprolol Tartrate 25 MG Tab PO SCH ×2 (08:22→20:30)
--- NOTE | 2018-11-14 10:16 | PCM.PN ---
- General Info Date of Service: 11/14/18 Functional Status: Reports: Pain Controlled, Tolerating Diet, Ambulating, Incentive Spirometry. Denies: New Symptoms - Review of Systems General: Reports: Weakness. Denies: Fatigue, Malaise, Chills HEENT: Reports: No Symptoms Pulmonary: Reports: Shortness of Breath. Denies: Pleuritic Chest Pain, Cough, Sputum, Hemoptysis, Wheezing Cardiovascular: Reports: Dyspnea on Exertion. Denies: Palpitations, Orthopnea, Edema, Lightheadedness Gastrointestinal: Reports: No Symptoms Genitourinary: Reports: No Symptoms Skin: Reports: Mottled, Other (SKIN TEAR from POA fall left elbow, long deformed thick toenails) Neurological: Reports: No Symptoms, Pre-Existing Deficit, Difficulty Walking, Weakness. Denies: Numbness, Change in Speech Psychiatric: Reports: No Symptoms. Denies: Confusion, Depression, Anxiety, Agitation, Hallucinations - Patient Data Vitals - Most Recent: Last Vital Signs Temp 97.3 F 11/14/18 06:15 Pulse 72 11/14/18 08:22 Resp 16 11/14/18 06:15 BP 154/60 H 11/14/18 08:22 Pulse Ox 93 L 11/14/18 06:15 Weight - Most Recent: 243 lb I&O - Last 24 Hours: Intake & Output 11/13/18 11/14/18 11/14/18 22:59 06:59 14:59 Intake Total 637 225 Output Total 2000 700 Balance -1363 -475 Lab Results Last 24 Hours: Laboratory Results - last 24 hr 11/12/18 11/13/18 11/13/18 Range/Units 20:15 11:52 17:14 POC Glucose 320 H 147 H (74-106) mg/dl Specimen Type Urincc Urine RBC 0-5 (0-5) /HPF Urine WBC 0-5 (0-5) /HPF Ur Epithelial Cells Rare /LPF Urine Bacteria Not seen (NONE TO FEW) /HPF 11/14/18 Range/Units 07:34 POC Glucose 161 H (74-106) mg/dl Specimen Type Urine RBC (0-5) /HPF Urine WBC (0-5) /HPF Ur Epithelial Cells /LPF Urine Bacteria (NONE TO FEW) /HPF Tee Results Last 24 Hours: Microbiology 11/12/18 16:50 Gram Stain - Final Wound - Elbow, Left Med Orders - Current: Current Medications Acetaminophen (Tylenol Extra Strength) 1,000 mg PO Q6H PRN PRN Reason: pain, moderate Albuterol/Ipratropium (Duoneb 3.0-0.5 Mg/3 Ml) 3 ml NEB TIDRT [facility] Last Admin: 11/14/18 06:08 Dose: 3 ml Aspirin (Halfprin) 162 mg PO DAILY [facility] Last Admin: 11/14/18 08:21 Dose: 162 mg Enalapril Maleate (Vasotec) 10 mg PO TID [facility] Last Admin: 11/14/18 08:20 Dose: 10 mg Enoxaparin Sodium (Lovenox) 40 mg SUBCUT Q24H [facility] Last Admin: 11/13/18 12:09 Dose: 40 mg Furosemide (Lasix) 20 mg PO DAILY [facility] Last Admin: 11/14/18 08:21 Dose: 20 mg Insulin Aspart (Novolog) 0 unit SUBCUT TIDMEALS [facility]; Protocol Last Admin: 11/14/18 08:20 Dose: 1 unit Metformin HCl (Glucophage) 1,000 mg PO BID [facility] Last Admin: 11/14/18 08:21 Dose: 1,000 mg Metoprolol Tartrate (Lopressor) 25 mg PO BID [facility] Last Admin: 11/14/18 08:22 Dose: 25 mg Rosuvastatin Calcium (Crestor) 5 mg PO BEDTIME [facility] Last Admin: 11/13/18 20:47 Dose: 5 mg - Exam Quality Assessment: Supplemental Oxygen, DVT Prophylaxis (Lovenox) General: Alert, Oriented Neck: Supple Lungs: Clear to Auscultation, Normal Respiratory Effort Cardiovascular: Regular Rate, Regular Rhythm GI/Abdominal Exam: Other (large abdominal girth) (Male) Exam: Deferred Skin: Other (long and thick toenails) Neurological: Normal Speech, Normal Tone Psy/Mental Status: Alert, Normal Affect, Normal Mood - Problem List Review Problem List Initiated/Reviewed/Updated: Yes - My Orders Last 24 Hours: My Active Orders 11/13/18 12:00 Enoxaparin [Lovenox] 40 mg SUBCUT Q24H 11/13/18 21:00 metFORMIN [Glucophage] 1,000 mg PO BID - Plan Plan:: history of present illness Sheng is an 88 y/o pleasant gentleman who was admitted Into inpatient status through the ED due to significant weakness. Patient does have history of multiple falls in the past with previous admissions related to falls. most recent admission ~ 2 months ago when he had presented to the ED due to shortness of breath and worsening cough which was felt to be likely viral pneumonia with mild COPD exacerbation. pertinent ED findings Electrolytes non concerning. VSS normal stable update today on rounds; no concerns/calls from nursing throughout the night, did well on ambulation in halls with assistance, requires oxygen, physical therapy and respiratory noteds reviewed. Primary hospital problems Weakness with frequent falls COPD with hypoxia skin tear, POA, left elbow HFpEF ECHO (2018) EF 60%, gr II diastolic dysfunction, normal systolic function , mild LVH. high fall risk, precautions in place Obesity, co-morbid, likely component of hypoventilation syndrome Chronic stable problems oxygen dependent HTN. Continue enalapril and lopressor Mixed hyperlipidemia. Continue crestor T2DM. Accuchecks TID. given stability patient can continue with home metformin. Osteoarthritis. Continue tylenol PRN. Thoracic DDD Macular degeneration. DVT prophylaxis. Score 5. LMWH disposition/overall plan --patient continues to meet inpatient qualifications due to hypoxia. --Admission to SNF/LTC tomorrow --physical therapy --I/O --Daily wts --DO NOT RESUSCITATE ORDER SIGNED --Reviewed PT/RT notes: goals mutually set for patient appear reasonable and obtainable.
[2018-11-14] MEDS: Enoxaparin 40 MG/0.4 ML Syringe SUBCUT SCH (12:39)
[2018-11-14] MEDS: Rosuvastatin 5 MG Tab PO SCH (20:30)
[2018-11-15] MEDS: Albuterol/Ipratropium 3.0-0.5 MG/3 ML Neb Soln NEB SCH (06:48)
[2018-11-15] MEDS: Insulin Aspart 100 Units/ML 3 ML Pen SUBCUT SCH (07:52)
[2018-11-15] MEDS: Metoprolol Tartrate 25 MG Tab PO SCH ×2 (07:53→08:11)
[2018-11-15] MEDS: metFORMIN 500 MG Tab PO SCH ×2 (07:54→08:11)
[2018-11-15] MEDS: Enalapril 5 MG Tab PO SCH ×2 (07:54→08:11)
[2018-11-15] MEDS: Furosemide 20 MG Tab PO SCH ×2 (07:54→08:11)
[2018-11-15] MEDS: Aspirin 81 MG Tab.EC PO SCH ×2 (07:54→08:11)
--- NOTE | 2018-11-15 09:36 | PCM.DCSUM1 ---
Discharge Summary - Hospital Course Diagnosis: Stroke: No - Discharge Data Discharge Date: 11/15/18 Discharge Disposition: DC/Tfer to SNF 03 Condition: Good - Patient Summary/Data Consults: Consultations 11/12/18 18:16 Consult to Physical Therapy [PT Evaluation and Treatment] [CONS] Routine - Patient Instructions Diet: Diabetic Diet Activity: Cough & Deep Breathe Driving: Do Not Drive Showering/Bathing: May Shower - Discharge Plan *PRESCRIPTION DRUG MONITORING PROGRAM REVIEWED*: Not Applicable *COPY OF PRESCRIPTION DRUG MONITORING REPORT IN PATIENT NEGRITO: Not Applicable Prescriptions/Med Rec: Metoprolol Tartrate [Lopressor] 25 mg PO Q12HR #60 tablet Acetaminophen [Tylenol Extra Strength] 1,000 mg PO Q8H PRN #180 tablet PRN Reason: pain, moderate Albuterol/Ipratropium [DuoNeb 3.0-0.5 MG/3 ML] 3 ml NEB TID #90 neb Beta-Carotene(A) w/C & E/Min [Prosight] 1 tab PO DAILY #30 tablet Enalapril Maleate [Vasotec] 10 mg PO BID #60 tablet Furosemide [Lasix] 20 mg PO DAILY #30 tablet glipiZIDE [Glipizide ER] 10 mg PO DAILY@1200 #30 tab.er.24 glipiZIDE [Glipizide ER] 5 mg PO BEDTIME #30 tab.er.24 Insulin Aspart [NovoLOG] See Protocol SUBCUT TIDMEALS #3 pen metFORMIN [Glucophage] 1,000 mg PO BID #60 tablet Rosuvastatin [Crestor] 5 mg PO BEDTIME #30 tablet Home Medications: Home Meds Acetaminophen [Tylenol Extra Strength] 1,000 mg PO Q8H PRN #180 tablet 11/15/18 [Rx] Albuterol/Ipratropium [DuoNeb 3.0-0.5 MG/3 ML] 3 ml NEB TID #90 neb 11/15/18 [Rx ] Beta-Carotene(A) w/C & E/Min [Prosight] 1 tab PO DAILY #30 tablet 11/15/18 [Rx] Enalapril Maleate [Vasotec] 10 mg PO BID #60 tablet 11/15/18 [Rx] Furosemide [Lasix] 20 mg PO DAILY #30 tablet 11/15/18 [Rx] Insulin Aspart [NovoLOG] See Protocol SUBCUT TIDMEALS #3 pen 11/15/18 [Rx] Metoprolol Tartrate [Lopressor] 25 mg PO Q12HR #60 tablet 11/15/18 [Rx] Rosuvastatin [Crestor] 5 mg PO BEDTIME #30 tablet 11/15/18 [Rx] glipiZIDE [Glipizide ER] 5 mg PO BEDTIME #30 tab.er.24 11/15/18 [Rx] glipiZIDE [Glipizide ER] 10 mg PO DAILY@1200 #30 tab.er.24 11/15/18 [Rx] metFORMIN [Glucophage] 1,000 mg PO BID #60 tablet 11/15/18 [Rx] - Discharge Summary/Plan Comment DC Time >30 min.: Yes Discharge Summary/Plan Comment: Final diagnosis Weakness with frequent falls COPD with hypoxia skin tear, POA, left elbow HFpEF ECHO (2018) EF 60%, gr II diastolic dysfunction, normal systolic function , mild LVH. high fall risk, Obesity, co-morbid, likely component of hypoventilation syndrome Chronic stable problems oxygen dependent HTN. On enalapril and lopressor Mixed hyperlipidemia. On statin therapy T2DM. Controlled, high risk medication glipizide, prandial coverage insulin with sliding scale and metformin Osteoarthritis. Tylenol Thoracic DDD Macular degeneration. PreserVision multivitamin History MR Sheng Hernandez is an 88 y/o pleasant gentleman who was admitted into inpatient status through the ED at [place], [place] due to significant weakness and frequent falls. Patient does have history of multiple falls in the past with previous admissions related to falls. Patients most recent admission ~ 2 months ago when he had presented to the ED due to shortness of breath and worsening cough which was felt to be likely viral pneumonia with mild COPD exacerbation. pertinent ED findings, Electrolytes non concerning, VSS normal stable Hospital course Quite uneventful, had no side effects orders reactions to medication and/or treatments. He was hypoxic requiring oxygenation however this improved upon discharge however he will remain on oxygen. Never became hemodynamically unstable. Afebrile. Electrolytes were monitored. He did sustain a skin tear left elbow olecranon region which was present on admission. This was cleansed and covered daily dressing change. Culture showed no organisms. Physical therapy evaluated patient will goals were set which appear reasonable and obtainable related to his ambulation and strengthening. He will require oxygen. He was made a DO NOT RESUSCITATE during this hospital admission. Medications upon discharge Aspirin is continued upon discharge, not needed for CV primary prevention Enalapril Maleate [Vasotec] 10 mg PO BID (changed from TID to BID upon discharge ) Beta-Carotene(A) w/C & E/Min [Prosight] 1 tab PO DAILY Furosemide [Lasix] 20 mg PO DAILY Metoprolol Tartrate [Lopressor] 25 mg PO Q12HR Rosuvastatin [Crestor] 5 mg PO BEDTIME glipiZIDE [Glipizide ER] 5 mg PO BEDTIME glipiZIDE [Glipizide ER] 10 mg PO DAILY@1200 metFORMIN [Glucophage] 1,000 mg PO BID Acetaminophen [Tylenol Extra Strength] 1,000 mg PO Q6H PRN tablet Albuterol/Ipratropium [DuoNeb 3.0-0.5 MG/3 ML] 3 ml NEB TID Disposition Patient will be discharged from [facility], admitted to shelter facility [facility]. All prescriptions renewed and refill sent electronically to [facility] pharmacy [facility] - General Info Functional Status: Reports: Pain Controlled - Review of Systems General: Reports: No Symptoms HEENT: Reports: No Symptoms Pulmonary: Reports: Shortness of Breath Cardiovascular: Reports: Dyspnea on Exertion Gastrointestinal: Reports: No Symptoms Genitourinary: Reports: No Symptoms Musculoskeletal: Reports: No Symptoms Skin: Reports: Other (Bruising lower extremities, skin tear left elbow present on admission) Neurological: Reports: Difficulty Walking, Gait Disturbance - Patient Data Vitals - Most Recent: Last Vital Signs Temp 96.9 F 11/15/18 06:33 Pulse 72 11/15/18 07:53 Resp 16 11/15/18 06:33 BP 138/59 L 11/15/18 07:54 Pulse Ox 90 L 11/15/18 06:33 Weight - Most Recent: 243 lb I&O - Last 24 hours: Intake & Output 11/14/18 11/15/18 11/15/18 22:59 06:59 14:59 Intake Total 720 200 Output Total 2100 1200 Balance -1380 -1000 Lab Results - Last 24 hrs: Laboratory Results - last 24 hr 11/14/18 11/14/18 Range/Units 12:02 17:58 POC Glucose 200 H 135 H (74-106) mg/dl SARMAD Results - Last 24 hrs: Microbiology 11/12/18 16:50 Miscellaneous Reference Culture - Preliminary Wound - Elbow, Left Gram Stain - Final Med Orders - Current: Current Medications Acetaminophen (Tylenol Extra Strength) 1,000 mg PO Q6H PRN PRN Reason: pain, moderate Albuterol/Ipratropium (Duoneb 3.0-0.5 Mg/3 Ml) 3 ml NEB TIDRT [facility] Last Admin: 11/15/18 06:48 Dose: 3 ml Aspirin (Halfprin) 162 mg PO DAILY [facility] Last Admin: 11/15/18 08:11 Dose: Not Given Enalapril Maleate (Vasotec) 10 mg PO TID [facility] Last Admin: 11/15/18 08:11 Dose: Not Given Enoxaparin Sodium (Lovenox) 40 mg SUBCUT Q24H [facility] Last Admin: 11/14/18 12:39 Dose: 40 mg Furosemide (Lasix) 20 mg PO DAILY [facility] Last Admin: 11/15/18 08:11 Dose: Not Given Insulin Aspart (Novolog) 0 unit SUBCUT TIDMEALS [facility]; Protocol Last Admin: 11/15/18 07:52 Dose: 1 unit Metformin HCl (Glucophage) 1,000 mg PO BID [facility] Last Admin: 11/15/18 08:11 Dose: Not Given Metoprolol Tartrate (Lopressor) 25 mg PO BID [facility] Last Admin: 11/15/18 08:11 Dose: Not Given Rosuvastatin Calcium (Crestor) 5 mg PO BEDTIME [facility] Last Admin: 11/14/18 20:30 Dose: 5 mg - Exam Quality Assessment: Reports: Supplemental Oxygen General: Reports: Alert, Oriented Neck: Reports: Supple Lungs: Reports: Clear to Auscultation, Normal Respiratory Effort Cardiovascular: Reports: Regular Rate, Regular Rhythm GI/Abdominal Exam: No: Distended (Male) Exam: Deferred Rectal (Males) Exam: Deferred Back Exam: Denies: CVA Tenderness (L), CVA Tenderness (R) Extremities: No Pedal Edema Wound/Incisions: Reports: Healing Well, Dressing Dry and Intact (Skin tear present on admission left elbow) Neurological: Reports: No New Focal Deficit Psy/Mental Status: Reports: Alert, Normal Affect, Normal Mood
== END 2018-11-15 10:55 | DRG 191 ==
LOC: KA.ED 13:55 → KA.MS 16:10
PROVIDERS: ADMIT Physician Assistant Surgical; ATTEND Family Medicine
DX: J44.9 Chronic obstructive pulmonary disease, unspecified (principal); I50.30 Unspecified diastolic (congestive) heart failure; R53.1 Weakness; E66.2 Morbid (severe) obesity with alveolar hypoventilation; I11.0 Hypertensive heart disease with heart failure; E78.2 Mixed hyperlipidemia; R06.02 Shortness of breath; R09.02 Hypoxemia; H91.90 Unspecified hearing loss, unspecified ear; H54.7 Unspecified visual loss; M51.34 Other intervertebral disc degeneration, thoracic region; Z66 Do not resuscitate; H35.30 Unspecified macular degeneration; S51.012A Laceration without foreign body of left elbow, initial encounter; E78.00 Pure hypercholesterolemia, unspecified; Z98.49 Cataract extraction status, unspecified eye; Z90.89 Acquired absence of other organs; Z79.4 Long term (current) use of insulin; I10 Essential (primary) hypertension; Z87.891 Personal history of nicotine dependence; Z68.34 Body mass index [BMI] 34.0-34.9, adult; K59.09 Other constipation; M19.90 Unspecified osteoarthritis, unspecified site; E11.9 Type 2 diabetes mellitus without complications; E66.9 Obesity, unspecified; Z85.828 Personal history of other malignant neoplasm of skin; Z79.84 Long term (current) use of oral hypoglycemic drugs; Z79.82 Long term (current) use of aspirin; Z99.81 Dependence on supplemental oxygen; Z79.899 Other long term (current) drug therapy
CPT/HCPCS: 36415; 71045; 80048; 80053; 81001; 82962; 85025; 87070; 87205; 93005; 94640; 97110-GP; 97162-GP; 99284; 99285-25; A9270-GY; J1650; J1815-GY; J7620-GY